=== PATIENT | female | born 1985 | race Caucasian/White ===

== ENCOUNTER 2017-07-25 20:16 | Emergency (ER) | payer BC ==
[2017-07-25 20:24] VITALS: BP 143/84
[2017-07-25] MEDS ORDERED: Amoxicillin PO (*) 500 MG CAP PO ONE (21:20)
[2017-07-25] MEDS ORDERED: Ibuprofen TAB* 600 MG PO ONE (21:20)
--- NOTE | 2017-07-25 21:32 | UC ---
Throat Pain/Nasal Adrian HPI - HPI Summary HPI Summary: ST that woke pt in the middle of last night. Since then has noticed lots of R- sided pain and redness, felt feverish all day, has hx of recurrent tonsillitis and multiple episodes of peritonsillar abscess. Has children ages 6 and 2 at home. - History of Current Complaint Hx Obtained From: Patient Hx Last Menstrual Period: Jul 11 ?: No Onset/Duration: Sudden Onset, Lasting Hours Severity: Moderate Cough: None Associated Signs & Symptoms: Positive: Fever. Negative: Sinus Discomfort, Nasal Discharge <Vicki Amaya - Last Filed: 07/25/17 21:27> <Chikis Alberto - Last Filed: 07/26/17 10:05> - History of Current Complaint Chief Complaint: UCGeneralIllness Stated Complaint: ST,TONSIL BLEEDING Time Seen by Provider: 07/25/17 21:02 - Allergies/Home Medications Allergies/Adverse Reactions: Allergies Allergy/AdvReac Type Severity Reaction Status Date / Time Erythromycin [From Pediazole] Allergy Unknown Verified 07/25/17 20:24 Reaction Details Sulfisoxazole Allergy Unknown Verified 07/25/17 20:24 [From Pediazole] Reaction Details PMH/Surg Hx/FS Hx/Imm Hx Previously Healthy: Yes - Surgical History Surgical History: Yes Surgery Procedure, Year, and Place: 2 [id number]. COLONOSCOPY. hernia 2016 - Family History Known Family History: Negative: Blood Disorder - Social History Occupation: Employed Part-time - does childcare Alcohol Use: Occasionally Substance Use Type: None Smoking Status (MU): Never Smoked Tobacco Have You Smoked in the Last Year: No - Immunization History Most Recent Influenza Vaccination: unsure Most Recent Tetanus Shot: 11/20/14 Most Recent Pneumonia Vaccination: never <Vicki Amaya - Last Filed: 07/25/17 21:27> Review of Systems Constitutional: Chills, Fatigue Skin: Negative Eyes: Negative ENT: Sore Throat Respiratory: Negative Cardiovascular: Negative Gastrointestinal: Negative Genitourinary: Negative Motor: Negative Neurovascular: Negative Musculoskeletal: Negative Neurological: Negative Psychological: Negative Is Patient Immunocompromised?: No All Other Systems Reviewed And Are Negative: Yes <Vicki Amaya - Last Filed: 07/25/17 21:27> Physical Exam Triage Information Reviewed: Yes Vital Signs: Initial Vital Signs Temp 99.2 F 07/25/17 20:20 Pulse 113 07/25/17 20:20 Resp 18 07/25/17 20:20 BP 143/84 07/25/17 20:20 Pulse Ox 100 07/25/17 20:20 Vital Signs Reviewed: Yes Eye Exam: Normal Eyes: Positive: Conjunctiva Clear ENT: Positive: Pharyngeal erythema, TMs normal. Negative: Nasal congestion, Nasal drainage Dental Exam: Normal Neck: Positive: Enlarged Nodes @ - tonsillar Respiratory Exam: Normal Respiratory: Positive: Chest non-tender, Lungs clear, Normal breath sounds, No respiratory distress, No accessory muscle use Cardiovascular: Positive: No Murmur, Tachycardia Musculoskeletal Exam: Normal Neurological Exam: Normal Neurological: Positive: Alert Psychological Exam: Normal Skin Exam: Normal <Vicki Amaya - Last Filed: 07/25/17 21:27> Vital Signs: Initial Vital Signs Temp 99.2 F 07/25/17 20:20 Pulse 113 07/25/17 20:20 Resp 18 07/25/17 20:20 BP 143/84 07/25/17 20:20 Pulse Ox 100 07/25/17 20:20 <Chikis Alberto - Last Filed: 07/26/17 10:05> Throat Pain/Nasal Course/Dx - Differential Dx/Diagnosis Provider Diagnoses: tonsillitis <Vicki Amaya - Last Filed: 07/25/17 21:27> Discharge <Vicki Amaya - Last Filed: 07/25/17 21:27> <Chikis Alberto - Last Filed: 07/26/17 10:05> - Discharge Plan Condition: Stable Disposition: HOME Prescriptions: Amoxicillin PO (*) [Amoxicillin 875 MG (*)] 875 mg PO BID #13 tab Patient Education Materials: Tonsillitis (ED) Referrals: Shara Danielle MD [Primary Care Provider] - Additional Instructions: See Dr. Danielle if you do not have clear improvement within 1 week. Attestation Statement User Type: Provider - I was available for consult. This patient was seen by the ISAIAS. The patient was not presented to, seen by, or examined by me. -Yu <Chikis Alberto - Last Filed: 07/26/17 10:05>
== END 2017-07-25 21:33 | disposition home or self-care (01) ==
LOC: UCEAST 20:16
DX: J03.90 Acute tonsillitis, unspecified (principal)
CPT/HCPCS: 87651; 99212; A9270-GY; G0463

== ENCOUNTER 2018-12-01 07:02 | Emergency (ER) | payer BC ==
[2018-12-01 07:13] VITALS: BP 140/73
--- NOTE | 2018-12-01 07:14 | UC ---
Throat Pain/Nasal Adrian HPI - HPI Summary HPI Summary: Patient presents to urgent care with 6 days progressive sinus pressure congestion ear fullness. Patient with intermittent discharge or redness to her left eye for the last 3 days. Patient without any vision changes. Patient does wear contact lenses. Patient states she hasn't intermittent cough. Patient states her chest wall hurts when she coughs but no pain at rest. No shortness of breath. Patient states she had fevers last weekend but none since. Patient's son had knfk-iste-jaa-mouth is gotten better. Patient without any rashes. Patient states she is not . Patient's been using Sudafed as well as Mucinex with little improvement. Patient's medications reviewed this visit. - History of Current Complaint Stated Complaint: SINUS /CHEST CONGEST Hx Obtained From: Patient Hx Last Menstrual Period: Jul 11 - Allergies/Home Medications Allergies/Adverse Reactions: Allergies Allergy/AdvReac Type Severity Reaction Status Date / Time erythromycin base Allergy Rash Verified 12/01/18 07:13 [From Pediazole] sulfisoxazole Allergy Rash Verified 12/01/18 07:13 [From Pediazole] Home Medications: Home Medications Pseudoephedrine HCl [Sudafed] 30 mg PO DAILY PRN 12/01/18 [History Confirmed ] guaiFENesin [Mucinex] 600 mg PO BID PRN 12/01/18 [History Confirmed 12/01/18] PMH/Surg Hx/FS Hx/Imm Hx Previously Healthy: Yes - Surgical History Surgical History: Yes Surgery Procedure, Year, and Place: 2 [id number]. COLONOSCOPY. hernia 2016 - Family History Known Family History: Positive: Non-Contributory Negative: Blood Disorder - Social History Occupation: Employed Full-time Lives: With Family Alcohol Use: Occasionally Substance Use Type: None Smoking Status (MU): Never Smoked Tobacco Have You Smoked in the Last Year: No - Immunization History Most Recent Influenza Vaccination: unsure Most Recent Tetanus Shot: 11/20/14 Most Recent Pneumonia Vaccination: never Review of Systems All Other Systems Reviewed And Are Negative: Yes Constitutional: Positive: Fever, Fatigue Eyes: Positive: Drainage, Eye Redness ENT: Positive: Nasal Discharge, Sinus Congestion, Sinus Pain/Tenderness Respiratory: Positive: Cough. Negative: Shortness Of Breath Cardiovascular: Positive: Negative Gastrointestinal: Positive: Negative Genitourinary: Positive: Negative Physical Exam - Summary Physical Exam Summary: Vital Signs Reviewed: Yes A+Ox3, congested, tired appearing Eyes : PARVIZ, EOM intact and full, injection to left eye, no photophobia, no drainage ENT: Hearing grossly normal TM x 2 scant fluid, no erythema, no buldge, turbinates inflammed and boggy + PND, + TTP max sinuses l>R TTP frontal sinuses mmoist, uvula midline, no exudate, no erythema Neck: Positive: Supple Respiratory: Positive: No respiratory distress, No accessory muscle use + CTA throughout no w/r Cardiovascular: RRR nl s1, s2 no m/r CBT <2 sec abd soft + BS nt/nd no guarding, no distension Musculoskeletal Exam: ELENA x 4 without difficulty Strength Intact, ROM Intact Neurological: Positive: Alert, + sensation throughout Psychological: Positive: Normal Response To Family Skin: Positive: no rash, no ecchymosis Triage Information Reviewed: Yes Throat Pain/Nasal Course/Dx - Course Course Of Treatment: Patient presents to urgent care with 6 days progressive facial pressure ear fullness drainage from her left eye. Patient denies fevers this week but had the most weekend. Patient has been taking Motrin, Sudafed, Mucinex with mild improvement. Patient states her teeth ache and she just can't seem to get better. Patient's son was sick last week but has resolved with oyeh-qzzr-[id number]- mouth. On exam vital signs are stable. Patient exam consistent with rhinosinusitis. Patient also with some mild erythema to left eye but no discharge. Patient is a contact lens wearer. Recommend patient remove the contact. Warm soaks. We'll write Flonase Omnicef. If I continues after 24- hour Cipro drops to fill. Patient comfortable in agreement with plan. Return precautions discussed. Humidifier. /Motrin Tylenol. - Differential Dx/Diagnosis Provider Diagnosis: Rhinosinusitis, Conjunctivitis Discharge - Sign-Out/Discharge Documenting (check all that apply): Patient Departure All imaging exams completed and their final reports reviewed: No Studies - Discharge Plan Condition: Stable Disposition: HOME Prescriptions: Cefdinir [Cefdinir 300 MG CAP] 300 mg PO BID #20 capsule Ciprofloxacin 0.3% OPTH.ASHLY* [Cipro 0.3% Opth*] 2 drop LEFT EYE TID #1 btl Fluticasone NASAL SPRAY 50MCG* [Flonase NASAL SPRAY 50MCG*] 2 spray BOTH NARES DAILY #1 btl Patient Education Materials: Rhinosinusitis (ED) Referrals: Shara Danielle MD [Primary Care Provider] - Additional Instructions: - Stay well hydrated. Drink plenty of non-alcoholic, non-caffinated beverages. - Alternate ibuprofen (Advil, Motrin) 600mg and Tylenol every 3 hours for pain or fever. Take with food. Do NOT take for more than 4-5 days. - These infections are spread by secretions - do NOT share eating or drinking utensils - clean items you share with other people such as cell phones, computer mouse, TV remote, computer tablets,etc. Once you have been antibiotics for 2 days, change your toothbrush and your pillowcase. - get plenty of restful sleep - humidify the air in the room where you sleep - boil water, run a hot steam shower, vaporizer, cups of water by heat register - okay to take over the counter decongestant and cough medication - use nasal spray as prescribed - It is recommended you remove your contact lens and throw them out - apply warm soaks to your eye 3-4 times a day - If your eye continues to be irritated and have drainage it is recommended you start antibiotics drops as prescribed - contact your doctor or return with questions or concerns - Billing Disposition and Condition Condition: STABLE Disposition: Home
== END 2018-12-01 07:33 | disposition home or self-care (01) ==
LOC: UCEAST 07:02
DX: J01.90 Acute sinusitis, unspecified (principal); H10.9 Unspecified conjunctivitis; Z88.3 Allergy status to other anti-infective agents; Z88.2 Allergy status to sulfonamides
CPT/HCPCS: 99212; G0463

== ENCOUNTER 2020-03-23 05:37 | Inpatient (IN) ==
[2020-03-23] MEDS ORDERED: ceFOXitin 2 GM IVPREMIX 2 GM/50 ML BAG IVPB ONE (06:30)
[2020-03-23] MEDS ORDERED: Morphine PF AMP (0.5MG/ML) 5 MG/10 ML AMP ONE (07:34)
[2020-03-23] MEDS ORDERED: diPHENhydraMINE IV 50 MG/ML 1 ml VIAL (BENADRYL) IV PRN (08:29)
[2020-03-23] MEDS ORDERED: Naloxone 0.4 mg VIAL 0.4 mg/ml 1 ml VIAL IV PRN (08:29)
[2020-03-23] MEDS ORDERED: Ondansetron 4 mg VIAL 2 MG/ML 2 ml VIAL IV PRN (08:29)
[2020-03-23] MEDS ORDERED: oxyCODONE/Acetamin 5/325 mg TAB PO PRN (08:29)
[2020-03-23] MEDS ORDERED: fentaNYL 100 mcg/2 ml 50 MCG/ML VIAL ONE ×2 (08:54→09:02)
[2020-03-23] MEDS ORDERED: Lactated Ringers 1000 ml BAG 1,000 ML IV ONE (09:42)
[2020-03-23] MEDS ORDERED: Dibucaine 1% OINT 28.35 GM TUBE PR PRN (09:45)
[2020-03-23] MEDS ORDERED: Witch Hazel PAD JAR TOPICAL PRN (09:45)
[2020-03-23] MEDS ORDERED: Glycerin ADULT 2.4 gm SUPP PR PRN (09:45)
[2020-03-23] MEDS ORDERED: Lactated Ringers 1000 ml BAG 1,000 ML IV SCH ×2 (10:00)
[2020-03-23 10:46] LABS: Urine Benzodiazepine Screen None Detected (None Detect); Urine Opiates Screen None Detected (None Detect)
[2020-03-24 08:02] LABS: ABS Basophils 0.1 10^3/ul (0-0.2); ABS Eosinophils 0.1 10^3/ul (0-0.6); ABS Lymphocytes 1.6 10^3/ul (1.0-4.8); ABS Monocytes 0.9 10^3/ul (0-0.8); Eosinophil % 0.5 %; Hematocrit 32 % (35-47); Hemoglobin 10.9 g/dL (12.0-16.0); Lymphocyte % 12.3 %; Mean Corpuscular HGB Conc 34 g/dL (31-36); Mean Corpuscular Hemoglobin 30 pg (27-31); Mean Corpuscular Volume 87 fL (80-97); Platelet Count 228 10^3/uL (150-450); Red Blood Count 3.68 10^6 /uL (3.70-4.87); Red Cell Distribution Width 14 % (10-15); White Blood Count 13.2 10^3/uL (3.5-10.8)
[2020-03-25 07:37] VITALS: BP 126/60
== END 2020-03-25 12:36 | disposition home or self-care (01) | DRG 540 ==
LOC: MCHOB 05:37
PROVIDERS: ADMIT Obstetrics & Gynecology; ATTEND Obstetrics & Gynecology